=== PATIENT | female | born 1960 | race Hispanic/Latino ===

== ENCOUNTER 2018-04-04 07:07 | Emergency (ER) | payer SELFPAY ==
[2018-04-04] MEDS ORDERED: IBUPROFEN 600 MG TABLET ONE (07:40)
== END 2018-04-04 07:57 | disposition home or self-care (01) ==
LOC: EDH 07:07
DX: S60.222A Contusion of left hand, initial encounter (principal); R03.0 Elevated blood-pressure reading, without diagnosis of hypertension; I10 Essential (primary) hypertension; W22.03XA Walked into furniture, initial encounter; Y93.89 Activity, other specified; Y92.098 Other place in other non-institutional residence as the place of occurrence of the external cause; Y99.8 Other external cause status
CPT/HCPCS: 73130